=== PATIENT | male | born 1965 | race Asian ===

== ENCOUNTER 2021-08-16 10:41 | Emergency (ER) | payer MEDICARE, MEDICAID ==
[~2021-08-16] VITALS: Ht 167.6 cm; Wt 70.5 kg
[~2021-08-16 10:41] MED LIST: ACET-2119 PO; ALLO100T PO; IBUPROFEN PO; LISI10TA27 PO; TENO300T5 PO
[2021-08-16 10:49] VITALS: BP 170/64
== END 2021-08-16 11:53 | disposition home or self-care (01) ==
LOC: ER 10:41
DX: S86.812A Strain of other muscle(s) and tendon(s) at lower leg level, left leg, initial encounter (principal); M79.662 Pain in left lower leg; Z79.899 Other long term (current) drug therapy; X58.XXXA Exposure to other specified factors, initial encounter; Y93.39 Activity, other involving climbing, rappelling and jumping off; Y92.89 Other specified places as the place of occurrence of the external cause; Y99.8 Other external cause status
CPT/HCPCS: 99283